=== PATIENT | female | born 1955 | race Caucasian/White ===

== ENCOUNTER 2022-09-04 05:30 | Day surgery (SDC) | payer OTHER ==
[2022-09-02 11:08] VITALS: BMI 22.8
[~2022-09-04 05:30] MED LIST: ACETAMINOPHEN 325 MG TABLET (FP) PO PRN; OFLOXACIN 0.3% OPHTHALMIC SOLUTION 5 ML BOTTLE OP SCH; TRIAMCINOLONE ACET 40MG/1ML VIAL NR ONE
[2022-09-04 09:38] VITALS: RESP 20
[2022-09-04] MEDS ORDERED: OFLOXACIN 0.3% OPHTHALMIC SOLUTION 5 ML BOTTLE OS ONE ×3 (09:40→09:50)
[2022-09-04] MEDS ORDERED: OFLOXACIN 0.3% OPHTHALMIC SOLUTION 5 ML BOTTLE ONE (09:57)
[2022-09-04] MEDS ORDERED: LIDOCAINE HCL 2% JELLY (5 ML/TUBE) ONE (10:25)
[2022-09-04] MEDS ORDERED: TRIAMCINOLONE ACET 40MG/1ML VIAL ONE (10:25)
[2022-09-04] MEDS ORDERED: MIDAZOLAM HCL 2 MG/2 ML SINGLE DOSE VIAL ONE (10:34)
[2022-09-04] MEDS ORDERED: TETRACAINE 0.5% OPHTH SOLN 2 ML BOTTLE TP ONE (11:03)
[2022-09-04] MEDS ORDERED: POVIDONE-IODINE 5% OPHTHALMIC PREP 30 ML SOLUTION OS ONE (11:05)
[2022-09-04] MEDS ORDERED: BSS (NA/CA/MG/K) BALANCED SALT SOLUTION OPHTH SOLN 15 ML BOTTLE OS ONE (11:10)
[2022-09-04] MEDS ORDERED: LIDOCAINE 1%/EPI 1:100000 (20 ML MULTI DOSE VIAL) IJ ONE ×2 (11:11)
[2022-09-04] MEDS ORDERED: TRIAMCINOLONE ACET 40MG/1ML VIAL NR ONE (11:37)
[2022-09-04 12:34] VITALS: BP 140/59; PULSE 66; TEMP 97.8
== END 2022-09-04 12:40 | disposition home or self-care (01) ==
LOC: JASU-SURG 05:30
PROVIDERS: ATTEND Ophthalmology
PROC: 08U107Z Supplement of Left Eye with Autologous Tissue Substitute, Open Approach (ICD-10-PCS; principal; 2022-09-04 11:00)
DX: H11.002 Unspecified pterygium of left eye (principal)
CPT/HCPCS: 88304-TC

== ENCOUNTER 2023-08-28 13:43 | Emergency (ER) | payer OTHER ==
[2023-08-28 14:06] VITALS: BP 148/60; PULSE 66; RESP 16; TEMP 98.2; BMI 21.7
== END 2023-08-28 14:58 | disposition home or self-care (01) ==
LOC: JERFT 13:43
DX: R07.0 Pain in throat (principal); K12.1 Other forms of stomatitis
CPT/HCPCS: 99283-25